=== PATIENT | female | born 1970 | race Caucasian/White ===

== ENCOUNTER 2017-01-20 09:29 | Emergency (ER) | payer OTHER ==
[~2017-01-20] VITALS: Ht 165.1 cm; Wt 93.0 kg
[~2017-01-20 09:29] MED LIST: BENTYL10 MG PO; COLACE100 MG PO; ENDOCET 5-3251 EACH PO; MOTRIN400 M1 PO; PRILOSEC10 MG PO; RELPAX40 MG PO; ULTRAM50 MG PO
[2017-01-20] MEDS ORDERED: RELPAX40 MG PO (10:19)
[2017-01-20] MEDS ORDERED: PROAIR HFA8.5 GM IH (10:21)
[2017-01-20 12:08] LABS: BASOPHIL COUNT 0.1 K/uL (0-0.1); EOSINOPHIL (%) 4.3 % (0-5); EOSINOPHIL COUNT 0.3 K/uL (0-0.3); HEMATOCRIT 46.7 % (36.0-46.0); IMMATURE GRANULOCYTE (%) 0.3 % (0.0-0.7); INSTRUMENT ABS NEUTROPHIL CT 4.4 K/uL; LYMPHOCYTE COUNT 1.5 K/uL (1.0-2.8); MCH 30.5 PG (29.0-34.0); MCV 92.5 FL (83-99); MEAN PLAT.VOLUME 10.2 uM^3 (9.5-12.4); MONOCYTE (%) 6.3 % (3-12); MONOCYTE COUNT 0.4 K/uL (0-0.8); NEUTROPHIL (%) 65.5 % (45-76); NEUTROPHIL COUNT 4.4 K/uL (1.8-6.4); PLATELET COUNT 230 K/uL (156-360); RBC DIS.WIDTH-CV 13.2 % (11.8-14.6); RBC DIS.WIDTH-SD 44.6 % (39-53); RED BLOOD COUNT 5.05 M/uL (3.80-5.20); WHITE BLOOD COUNT 6.7 K/uL (4.1-10.2)
[2017-01-20 12:31] LABS: TROP-I INTERPRETATION NEGATIVE; TROPONIN-I < 0.01 ng/mL (0.0-0.30)
[2017-01-20 14:40] LABS: TROP-I INTERPRETATION NEGATIVE; TROPONIN-I < 0.01 ng/mL (0.0-0.30)
[2017-01-20 14:47] LABS: ANION GAP 7 MEQ/L (2-14); CHLORIDE 105 MEQ/L (99-109); POTASSIUM 4.4 MEQ/L (3.7-5.4); SAMPLE HEMOLYSIS CHECK 0; SAMPLE ICTERIC CHECK 0; SAMPLE LIPEMIA CHECK 0; SODIUM 138 MEQ/L (136-147); TOTAL BILIRUBIN 0.7 MG/DL (0.0-1.0)
[2017-01-20 14:53] LABS: ALKALINE PHOSPHATASE 85 IU/L (3-129); GFR ESTIMATE (CALCULATED) > 59 mL/min/; GLUCOSE 81 mg/dL (70-99); LIPASE 7 U/L (1.0-51.0); UREA NITROGEN (BUN) 9 mg/dL (9-23)
[2017-01-20 15:35] VITALS: BP 129/77
== END 2017-01-20 15:36 | disposition home or self-care (01) ==
LOC: EME 09:29
PROVIDERS: Emergency Medicine
DX: K20.9 Esophagitis, unspecified (principal); J45.909 Unspecified asthma, uncomplicated; Z87.891 Personal history of nicotine dependence
CPT/HCPCS: 71010; 80053; 83690; 84484; 85025; 93005; 99281; 99285; J2270

== ENCOUNTER → 2017-03-02 | Outpatient (CLI) | payer OTHER ==
[~2017-03-02] VITALS: Ht 165.1 cm; Wt 100.7 kg
[~2017-03-02] MED LIST changes: +MOTRIN400 MG PO; +PRILOSEC OTC20 MG PO; +PROAIR HFA8.5 GM IH
== END | disposition home or self-care (01) ==
LOC: AMB 11:27
PROC: 0DB68ZX Excision of Stomach, Via Natural or Artificial Opening Endoscopic, Diagnostic (ICD-10-PCS; principal; 2017-03-02)
DX: K22.10 Ulcer of esophagus without bleeding (principal); K29.70 Gastritis, unspecified, without bleeding; Z80.0 Family history of malignant neoplasm of digestive organs; R07.89 Other chest pain; M54.9 Dorsalgia, unspecified; J45.909 Unspecified asthma, uncomplicated; K90.41 Non-celiac gluten sensitivity; Z88.8 Allergy status to other drugs, medicaments and biological substances; Z91.09 Other allergy status, other than to drugs and biological substances; Z91.040 Latex allergy status; Z91.018 Allergy to other foods; Z82.61 Family history of arthritis
CPT/HCPCS: 88305; 88342 TC

== ENCOUNTER 2017-07-19 04:07 | Emergency (ER) | payer OTHER ==
[~2017-07-19] VITALS: Ht 165.1 cm; Wt 102.2 kg
[2017-07-19] MEDS ORDERED: ULTRAM50 MG PO (05:46)
[2017-07-19 06:10] VITALS: BP 135/90
== END 2017-07-19 06:12 | disposition home or self-care (01) ==
LOC: EME 04:07
DX: S40.012A Contusion of left shoulder, initial encounter (principal); S60.222A Contusion of left hand, initial encounter; W01.0XXA Fall on same level from slipping, tripping and stumbling without subsequent striking against object, initial encounter; Y92.009 Unspecified place in unspecified non-institutional (private) residence as the place of occurrence of the external cause
CPT/HCPCS: 73030; 73140; 99281; 99284

== ENCOUNTER 2017-10-05 05:10 | Emergency (ER) | payer BC ==
[~2017-10-05] VITALS: Ht 165.1 cm; Wt 101.5 kg
[2017-10-05] MEDS ORDERED: AUGMENTIN875 MG PO (06:03)
[2017-10-05] MEDS ORDERED: SUDAFED PE PRE1 EAC1 PO (06:03)
[2017-10-05 06:14] VITALS: BP 155/86
== END 2017-10-05 06:15 | disposition home or self-care (01) ==
LOC: EME 05:10
DX: J01.90 Acute sinusitis, unspecified (principal); J20.9 Acute bronchitis, unspecified; J45.909 Unspecified asthma, uncomplicated; R11.2 Nausea with vomiting, unspecified
CPT/HCPCS: 71020; 94640; 99281; 99284